=== PATIENT | female | born 1990 | race Caucasian/White ===

== ENCOUNTER 2019-09-25 23:36 | Emergency (ER) | payer MEDICAID ==
[~2019-09-25] VITALS: Ht 157.5 cm; Wt 52.2 kg
--- NOTE | 2019-09-26 | NUR ---
ED Nurse Note: Recieved pt from home, here with c/o migraine headache at 10/10 and problems with constipation and IUD placement possibly, pt is awake, alert and oriented x 4, ambulating has photophobia from migraine, no sob or labored breathing, no cp, pt assisted with gowning and uriine sample collected, will resume care as ordered and closely monitor.
--- NOTE | 2019-09-26 00:10 | Emergency Room Report ---
History of Present Illness General Chief Complaint: General Complaint Source: Patient Present Illness HPI 29-year-old female presents with headache that started at 3 PM, pounding in nature aggravated by light, and noise, alleviated by nothing, severity is moderate, constant, patient reports that she is been having some problems since her IUD was placed, she endorses some nausea, she feels a pressure/pounding nature in the front of her head. Patient presents for evaluation. Patient reports that she has been seeing/feeling her strings were the past 3 days Allergies: Coded Allergies: No Known Allergies (Unverified , 09/25/19) Patient History Past Medical History: see triage record Social History: Reports: smoking Last Menstrual Period: IUD Reviewed Nursing Documentation: PMH: Agreed; PSxH: Agreed Review of Systems All Other Systems: negative except mentioned in HPI Physical Exam Vital Signs Date Time Temp Pulse Resp B/P (MAP) Pulse Ox O2 Delivery O2 Flow Rate FiO2 09/25/19 23:39 98.2 97 18 122/86 (98) 96 Room Air Sp02 EP Interpretation: reviewed, normal General Appearance: well appearing, no apparent distress, alert Head: normocephalic, atraumatic Eyes: bilateral eye PERRL, bilateral eye EOMI ENT: uvula midline, moist mucus membranes Neck: supple, thyroid normal, supple/symm/no masses Respiratory: lungs clear, no respiratory distress, no retraction, no accessory muscle use Cardiovascular #1: normal peripheral pulses, regular rate, rhythm, no edema, no gallop, no murmur Gastrointestinal: non tender, soft, no guarding, no rebound Musculoskeletal: normal inspection Neurologic: alert, oriented x3, mobile application architect III-XII nml as tested, motor strength/tone normal, cerebellar normal - finger nose testing intact, no Romberg no pronator, normal gait, speech normal, other Psychiatric: mood/affect normal Skin: no rash, warm/dry Medical Decision Making Diagnostic Impression: Primary Impression: Headache Qualified Codes: R51 - Headache ER Course Based on the patient's history and physical there is very low clinical suspicion for significant intracranial pathology. There are no red flags of DE JESUS, not sudden in onset, not maximal in onset, no acute neurological findings, no fever with head stiffness. Also with new Mirena IUD, possible hormone fluctuations causing worsening of her headache. History of headaches yes Low suspicion for subarachnoid hemorrhage, encephalitis, meningitis. DE JESUS cocktail given Patient feels better Dispo home w/ return precautions Laboratory Tests Test 09/26/19 00:10 Urine HCG, Qualitative Negative (NEGATIVE) Last Vital Signs Date Time Temp Pulse Resp B/P (MAP) Pulse Ox O2 Delivery O2 Flow Rate FiO2 09/25/19 23:39 98.2 97 18 122/86 (98) 96 Room Air Disposition: HOME, SELF-CARE Condition: Stable Scripts Riboflavin (RIBOFLAVIN) 100 Mg Tablet 400 MG PO DAILY, #180 TAB Prov: Ed Rojas MD 09/26/19 Referrals: NOT CHOSEN IPA/,REFERRING (PCP) [facility]. [facility] Patient Instructions: General Headache Without Cause, [id number] Additional Instructions: The patient was provided with discharge instructions, notified to follow-up with a primary care doctor and or specialist in the next 24-48 hours, and to return to the ED if they have worsening of their symptoms. Please note that this report is being documented using [email or web address] technology. This can lead to erroneous entry secondary to incorrect interpretation by the dictating instrument. Ed Rojas MD Sep 26, 2019 00:10
[2019-09-26] MEDS ORDERED: DiphenhydrAMINE 50mg/ml Inj IVP ONE (00:15)
[2019-09-26] MEDS ORDERED: Dexamethasone 4mg/ml vial IVP ONE (00:15)
--- NOTE | 2019-09-26 01:50 | NUR ---
ER DISCHARGE NOTE: Patient is cleared to be discharged per ERMD, pt is aox4, on room air, with stable vital signs. pt was given dc and prescription instructions, pt was able to verbalize understanding, pt id band and iv site removed without complications. pt is able to ambulate with steady gait. pt took all belongings.
[2019-09-26 02:00] VITALS: BP 124/81
[2019-09-26] MEDS ORDERED: RIBOFLAVIN100 MG PO (02:03)
[2019-09-26 02:10] VITALS: BP 124/81
== END 2019-09-26 02:10 | disposition home or self-care (01) ==
LOC: EMR 23:51
DX: R51 Headache (principal); F17.200 Nicotine dependence, unspecified, uncomplicated; Z97.5 Presence of (intrauterine) contraceptive device
CPT/HCPCS: 81025; 96365; 96366; 96375; J0780; J1100; J1200; Z7502; 99284; J7030